=== PATIENT | female | born 1985 | race Caucasian/White ===

== ENCOUNTER 2023-04-25 05:27 | Emergency (ER) | payer OTHER ==
[~2023-04-25] VITALS: Ht 157.5 cm; Wt 56.7 kg
[2023-04-25] MEDS ORDERED: DICYCLOMINE HCL 10 MG CAPSULE PO STA (05:41)
[2023-04-25] MEDS ORDERED: ONDANSETRON ODT 4 MG TAB.RAPDIS SL ONE (05:45)
[2023-04-25] MEDS ORDERED: IV NORMAL SALINE 500 ML BAG IV ONE (05:45)
[2023-04-25] MEDS ORDERED: DICYCLOMINE HCL 20 MG TABLET ONE (05:58)
[2023-04-25] MEDS ORDERED: ONDANSETRON ODT 4 MG TAB.RAPDIS ONE (05:58)
[2023-04-25 06:23] LABS: BASOPHILS # (AUTO) 0.1 K/UL (0.0-0.2); BASOPHILS % (AUTO) 0.6 % (0.0-2.0); EOSINOPHILS # (AUTO) 0.1 K/uL (0.0-0.7); EOSINOPHILS % (AUTO) 0.6 % (0.0-7.0); HEMATOCRIT 41.3 % (31.2-41.9); LYMPHOCYTES # (AUTO) 1.4 K/uL (0.8-4.8); MEAN CORPUSCULAR HEMOGLOBIN 32.3 uug (24.7-32.8); MEAN CORPUSCULAR HGB CONC 34 g/dL (32.3-35.6); MEAN CORPUSCULAR VOLUME 95.1 fL (75.5-95.3); MONOCYTES # (AUTO) 0.7 K/uL (0.1-1.30); MONOCYTES % (AUTO) 5.6 % (0.0-11.0); NEUTROPHILS # (AUTO) 10.1 K/uL (1.8-8.9); NEUTROPHILS % (AUTO) 82.2 % (38.5-71.5); PLATELET COUNT (AUTO) 450 K/uL (179-408); RED BLOOD CELL COUNT(AUTO) 4.34 MIL/uL (3.63-4.92); RED CELL DISTRIBUTION WIDTH 12.5 % (12.3-17.7); WHITE BLOOD COUNT (AUTO) 12.3 K/uL (3.8-11.8)
[2023-04-25 06:25] LABS: *BILIRUBIN,URIN NEGATIVE (NEGATIVE); *CLARITY,URINE CLEAR (CLEAR); *COLOR,URINE YELLOW (YELLOW); *KETONES,URINE NEGATIVE (NEGATIVE); *PROTEIN,URINE NEGATIVE (NEGATIVE); *UROBILINOGEN,URINE 0.2 E.U./dl (NORMAL); LEUKOCYTE ESTERASE ,URINE NEGATIVE (NEGATIVE); NITRITE, URINE NEGATIVE (NEGATIVE); UGLUCOSE NEGATIVE (NEGATIVE)
[2023-04-25 06:26] LABS: DIFFERENTIAL COMMENT 1
[2023-04-25 06:29] LABS: *BLOOD, URINE TRACE (NEGATIVE)
[2023-04-25 06:30] LABS: *URINE HCG, QUAL NEGATIVE (NEGATIVE)
[2023-04-25] MEDS ORDERED: HYDROMORPHONE 1 MG/1 ML DISP.SYRIN ONE (06:45)
[2023-04-25] MEDS ORDERED: HYDROMORPHONE 1 MG/1 ML DISP.SYRIN IV ONE (06:45)
[2023-04-25 06:57] LABS: ALBUMIN 4.1 g/dL (3.4-5.0); BILIRUBIN,TOTAL 0.2 mg/dL (0.2-1.0); CALCIUM 9.2 mg/dL (8.5-10.1); CREATININE 0.8 mg/dL (0.6-1.3); POTASSIUM 3.7 mmol/L (3.5-5.1); TOTAL PROTEIN, SERUM 7.8 g/dL (6.4-8.2)
[2023-04-25 07:05] LABS: C-REACTIVE PROTEIN 0.51 mg/dL (0.00-0.30)
[2023-04-25] MEDS ORDERED: LEVO500T90 PO (07:41)
[2023-04-25] MEDS ORDERED: ACET1TAB23 PO (07:41)
[2023-04-25] MEDS ORDERED: ONDA4TAB5 PO (07:41)
[2023-04-25 07:43] LABS: BACTERIA,URINE FEW /HPF (NONE SEEN); RBC,URINE 0-3 /HPF (0-3); SQUAMOUS EPITHELIAL CELL,UR FEW /HPF (NONE SEEN); WBC,URINE NONE SEEN /HPF (0-3)
[2023-04-25] MEDS ORDERED: MORPHINE SULFATE 2 MG/1 ML DISP.SYRIN ONE (07:50)
[2023-04-25] MEDS ORDERED: MORPHINE SULFATE 4 MG/1 ML DISP.SYRIN IV ONE (08:00)
[2023-04-25 08:38] VITALS: BP 112/68; O2SAT 99
== END 2023-04-25 09:46 | disposition home or self-care (01) ==
LOC: ER 05:30
DX: R10.84 Generalized abdominal pain (principal); R11.0 Nausea; R10.2 Pelvic and perineal pain; F41.9 Anxiety disorder, unspecified; F32.A Depression, unspecified
CPT/HCPCS: 99284; 96374; 96375; 80053; 81001; 84703; 83735; 85025; 86140; 36415; 74018; 83605; J1170; J2270; J7040; A4606; A4663; Q0162